=== PATIENT | male | born 1955 | race Caucasian/White ===

== ENCOUNTER → 2024-05-14 08:01 | Outpatient (REF) | payer MEDICARE, OTHER, SELFPAY ==
[2024-05-14 10:24] LABS: ALT (SGPT) 19 U/L (0-50); AST (SGOT) 23 U/L (17-59); Albumin 4.6 g/dl (3.5-5.0); Alkaline Phosphatase 41 U/L (38-126); Blood Urea Nitrogen 18 mg/dl (9-20); Calcium 9.4 mg/dl (8.4-10.2); Carbon Dioxide 27 mmol/L (22-30); Chloride 104 mmol/L (98-107); Glucose 93 mg/dl (70-99); HDL Cholesterol 37 mg/dl; LDL Cholesterol, Calculated 48 mg/dl; Potassium 4.2 mmol/L (3.5-5.1); Sodium 140 mmol/L (135-145); Total Bilirubin 0.9 mg/dl (0.2-1.3); Total Cholesterol 111 mg/dl (50-199); Total Protein 6.9 g/dl (6.3-8.2); Triglyceride 133 mg/dl (10-149); Very Low Density Lipoprotein 26 mg/dl (0-30); eGFR > 60.00
== END ==
LOC: HWRCS 08:01
PROVIDERS: ATTENDING PHYSICIAN Internal Medicine Cardiovascular Disease; FAMILY PHYSICIAN Internal Medicine
DX: I48.0 Paroxysmal atrial fibrillation (principal); E78.2 Mixed hyperlipidemia
CPT/HCPCS: 36415; 80053; 80061; 93306

== ENCOUNTER 2024-09-26 06:01 | Day surgery (SDC) | payer MEDICARE, OTHER, SELFPAY ==
[2024-09-18 10:38] VITALS: BMI 27.5
[2024-09-26] VITALS (9 sets, daily range): BP systolic 116–152; BP diastolic 67–85; BMI 26.3
[2024-09-26 08:44] LABS: ACT-LR - POC 308 Seconds (116-155)
[2024-09-26 09:04] LABS: ACT-LR - POC 322 Seconds (116-155)
[2024-09-26 09:28] LABS: ACT-LR - POC 271 Seconds (116-155)
--- NOTE | 2024-09-26 09:52 | ITS.CL.ABL ---
[employer] - Ablation
Ablation
Procedure Report:
AFIB ablation:
Mr. Mcclain is a very pleasant 69 yr old gentleman with symptomatic paroxysmal AF presented today to the EP lab for atrial fibrillation ablation.
Date of the Procedure:
09/26/2024
Indications:
Paroxysmal atrial fibrillation
Pre-Operative Diagnosis:
Paroxysmal atrial fibrillation
Post-Operative Diagnosis:
Paroxysmal atrial fibrillation
Procedure Performed:
Atrial fibrillation ablation with Pulsed-Field approach for pulmonary vein isolation
Performing Physician:
Rashmi Diaz MD
Assistants:
EP staff
Anesthesia:
See anesthesia records
Detailed Description of the Procedure:
Written informed consent was obtained from the patient after a full explanation of the risks and benefits of the procedure including the risks of sedation and anesthesia.
The patient was brought to the electrophysiology laboratory in stable condition in fasting state. Continuous electrocardiographic and hemodynamic monitoring was initiated.
The initial rhythm was sinus rhythm.
The procedure site was meticulously prepared with surgical scrub and allowed to dry with no pooling. Sterile draping was applied to cover the procedure site. The image intensifier was draped with sterile bag and positioned over the patient. After
infusion of local anesthetic, vascular access was obtained under ultrasound guidance and sheaths were placed over guide wire as detailed below.
Sheath and Catheter Placement:
The following catheters / sheaths were placed
Sheaths:
��������� 15Fr steerable sheath (FlexCath Cross�, [employer]) in right femoral vein in right femoral vein
��������� 9Fr in right femoral vein
Catheters:
��������� RONALD HD Grid mapping catheter � at locations of RA, LA
��������� PulseSelect� PFA catheter
��������� ICE catheter -AcuNav - at locations of RA, SVC, and RV.
Intracardiac ECHO:
An 8-Dutch AcuNav intracardiac ECHO (ICE) probe was advanced through the 9-Dutch sheath in the right femoral vein into the right atrium under fluoroscopic and ICE ultrasound image guidance and a baseline ECHO study was performed. The left atrial
size was mildly dilated. There was moderate tricuspid regurgitation. The aortic valve was grossly normal. There was normal left ventricular systolic functions. There is trace pericardial effusion. All the four veins were identified and has flow
identified.
During the procedure, ICE was used for monitoring of complications, guidance of trans-septal puncture, monitor the catheter position and tracking ablation lesions. No change in the pericardial space noted throughout the procedure.
Trans-septal Puncture:
Heparin was initiated and infused to maintain appropriate ACT. A J-tipped guidewire was advanced through the 8-Dutch sheath in the right femoral vein into the superior vena cava under fluoroscopic and ICE guidance. The 8-Dutch sheath was exchanged
for a FlexCath Cross sheath which was advanced into the superior vena cava. An [employer] transseptal access system was utilized to perform the trans-septal puncture. The apparatus was withdrawn until it was in contact with the fossa ovalis. The
position was adjusted based on fluoroscopy and ultrasound images from ICE. Under fluoroscopic, hemodynamic and ICE ultrasound guidance, left atrium was cannulated by advancing the needle. Once atrial septum was cannulated, the needle was pulled back
and a guide wire was advanced through the needle into the left atrium. The guide wire was advanced into the left superior pulmonary vein. Both the sheath and the dilator was advanced into the left atrium. The dilator with the needle was withdrawn.
Blood was aspirated from the FlexCath cross sheath and arterial blood confirmed. The sheath was flushed. Saline injection noted into the left atrium on ICE. The mapping catheter was advanced in the FlexCath sheath into the left pulmonary vein. Left
atrial pressure was measured.
3D Electroanatomic Mapping:
Using the HD Grid catheter advanced through sheath into the left atrium, an electroanatomic map (EAM) of the left atrium was created using Scrip-t mapping system. The map was used for localization of catheter position and tacking of ablation
lesions. The EAM of the left atrium showed 4 pulmonary veins with two left sided and two right sided veins electrically connected to the body the LA. The EAM showed no significant scar in the left atrium.
The LA was normal in size.
Following the EAM, preparation were made for ablation.
Ablation:
Ablation # 1: Pulmonary vein Isolation:
Glycopyrrolate 0.2 mg was given prior to the placement of ablation. Using [employer]� pulsed field ablation system, pulmonary vein isolation was achieved. First the ablation catheter was placed in the LSPV and ostial ablation lesions were performed
in a counter clock loaiza approach all around the PV ostium circumferentially. Then the catheter was placed on the antral location and multiple ablation lesions were placed circumferentially on the antrum of the vein.
In the similar fashion, the LIPV were isolated.
Then the catheter was moved to right sided veins. The ostial and antral ablations were placed as noted above to the RSPV and RIPV.
Summary of ablation applied:
LSPV: 22 lesions ;�������������� RSPV: 20 lesions
LIPV: 12 lesions; �������������� RIPV: 16 lesions
Total 65 ablation lesions.
Post ablation Electroanatomic mapping:
Once the sinus rhythm achieved, the LA was mapped with HD grid in detail.
The veins were isolated and normal electrograms noted in the posterior wall. Excellent WACA ablation noted with excellent demarcation of LA myocardium and isolated antral tissue.
EPS and Confirmation of the PVI and bidirectional block:
Following achievement of entrance block at the pulmonary veins, pacing from the HD catheter in each of the four veins at 10 milliamps for 2 milliseconds showed entrance and exit block. All PVI were rechecked at the end of the case and remained
isolated with dissociated and local capture with pacing. Entrance and exit block were demonstrated in all veins.
Procedure End
ICE study was done again that showed no epicardial accumulation. No complications noted.
Following the completion of the EP study, catheters were removed. Protamine 40 mg was given at the end of the procedure and ACT was checked repeatedly. The sheaths were removed and hemostasis achieved with VASCADE and manual compression after
acceptable ACT is achieved.
Left atrial Pressure:
Mean LA pressure was 14mmHg
Mean RA pressure was 11mmHg
Fluoro Time:
3.6 min / 10.1mGy
Estimated Blood loss:
<10 cc
Specimens Removed:
None.
Implants / Devices:
None
Urine output:
None
Packs / Drains/ Tubes:
None
Instrument / Sponge Count Correct:
Yes
Complications of the Procedure:
None
Condition of Patient at Time of Transfer:
Hemodynamically stable with no neurological or vascular compromise.
Summary:
Successful atrial fibrillation ablation with Pulsed Field approach for pulmonary vein isolation
Figures from the Procedure:
Figure 1: The electroanatomic mapping (EAM) of the left atrium with bipolar voltage (purple indicates normal electrical activity with smith as no myocardial muscle electric activity indicating a line of block or scar.
[2024-09-26] MEDS: ANESTHETIC LOZENGE 1 LOZENGE PO (10:36)
--- NOTE | 2024-09-26 13:11 | W.PN.UPDATE ---
Update Note
Progress Note Update
69 yo WM s/p PVI (same day). He denies cp, sob, kanu diet, voiding, amb w/o dizziness, EKG SR with new LBBB which resolved prior to d/c home. R fem site c/d/i no HT, soft. He will resume OAC Eliquis tonight. ACtivity restirictions reviewed. He will
f/u [employer] in 2 weeks. He is for d/c home after 1230p.
== END 2024-09-26 12:30 | disposition home or self-care (01) ==
LOC: CATH 06:01
PROVIDERS: ATTENDING PHYSICIAN Internal Medicine Cardiovascular Disease; FAMILY PHYSICIAN Internal Medicine; OTHER PHYSICIAN Internal Medicine Cardiovascular Disease
DX: I48.0 Paroxysmal atrial fibrillation (principal); Z79.01 Long term (current) use of anticoagulants; Z79.899 Other long term (current) drug therapy; I44.7 Left bundle-branch block, unspecified; Z88.8 Allergy status to other drugs, medicaments and biological substances; Z98.890 Other specified postprocedural states
CPT/HCPCS: C1894; C1769; C1892; C1759; C1732; 85347; 86900; 86901; 93005; 93656; C1733; C1760; C1766

== ENCOUNTER → 2025-03-06 07:01 | Outpatient (REF) | payer MEDICARE, OTHER, SELFPAY ==
[2025-03-06 11:13] LABS: Albumin 4.8 g/dl (3.5-5.0); Blood Urea Nitrogen 21 mg/dl (9-20); Calcium 9.8 mg/dl (8.4-10.2); Carbon Dioxide 27 mmol/L (22-30); Chloride 105 mmol/L (98-107); Glucose 105 mg/dl (70-99); Phosphorus 3.9 mg/dl (2.5-4.5); Potassium 4.3 mmol/L (3.5-5.1); Sodium 144 mmol/L (135-145); eGFR > 60.00
== END ==
LOC: HWLAB 07:01
PROVIDERS: ATTENDING PHYSICIAN Internal Medicine Cardiovascular Disease; FAMILY PHYSICIAN Internal Medicine
DX: I10 Essential (primary) hypertension (principal)
CPT/HCPCS: 36415; 80069

== ENCOUNTER → 2025-03-19 07:33 | Outpatient (REF) | payer MEDICARE, OTHER, SELFPAY ==
[2025-03-19 07:59] LABS: Urine Albumin 1+ (Neg - Trace); Urine Bilirubin Negative (Negative); Urine Character Clear (Clear); Urine Color Yellow; Urine Glucose Negative (Negative); Urine Ketone Negative (Negative); Urine Leukocyte Negative (Negative); Urine Nitrite Negative (Negative); Urine Occult Blood Negative (Negative); Urine Specific Gravity 1.025 (<1.030); Urine Urobilinogen Negative (Neg - 1+)
[2025-03-19 08:00] LABS: Urine Red Blood Cell 0-2 /HPF (0-2); Urine White Cell 0-2 /HPF (0-5)
[2025-03-19 08:22] LABS: ALT (SGPT) 21 U/L (0-50); AST (SGOT) 22 U/L (17-59); Albumin 4.1 g/dl (3.5-5.0); Alkaline Phosphatase 27 U/L (38-126); Blood Urea Nitrogen 21 mg/dl (9-20); Calcium 9.5 mg/dl (8.4-10.2); Carbon Dioxide 31 mmol/L (22-30); Chloride 103 mmol/L (98-107); Glucose 98 mg/dl (70-99); Potassium 4.5 mmol/L (3.5-5.1); Sodium 143 mmol/L (135-145); Total Bilirubin 0.8 mg/dl (0.2-1.3); Total Protein 6.5 g/dl (6.3-8.2); eGFR > 60.00
[2025-03-19 08:53] LABS: Cortisol, Random 18.3 ug/dl
[2025-03-19 09:35] LABS: TSH Reflex To Free T4 2.39 uIU/ml (0.47-4.68)
== END ==
LOC: REG 07:33
PROVIDERS: ATTENDING PHYSICIAN Student in an Organized Health Care Education/Training Program; FAMILY PHYSICIAN Internal Medicine
DX: I10 Essential (primary) hypertension (principal)
CPT/HCPCS: 36415; 80053; 81003; 81015; 82088; 82533; 83835; 84244; 84443

== ENCOUNTER → 2025-04-03 06:46 | Outpatient (REF) | payer MEDICARE, OTHER, SELFPAY | LOC: RAD 06:46 | PROVIDERS: ATTENDING PHYSICIAN Student in an Organized Health Care Education/Training Program; FAMILY PHYSICIAN Internal Medicine; OTHER PHYSICIAN Specialist | DX: I1A.0 Resistant hypertension (principal) | CPT/HCPCS: 93975 ==

== ENCOUNTER → 2025-06-05 13:01 | Outpatient (REF) | payer MEDICARE, OTHER, SELFPAY | LOC: HWRCS 13:01 | PROVIDERS: ATTENDING PHYSICIAN Nurse Practitioner; FAMILY PHYSICIAN Internal Medicine | DX: I42.2 Other hypertrophic cardiomyopathy (principal) | CPT/HCPCS: 93306 ==

== ENCOUNTER → 2025-06-24 07:14 | Outpatient (REF) | payer MEDICARE, OTHER, SELFPAY ==
[2025-06-24 09:02] LABS: Hematocrit 41.6 % (39.0-52.0); Hemoglobin 14.1 g/dL (13.0-18.0); Mean Corp Hgb Conc. 33.9 g/dL (33.0-37.0); Mean Corpuscular Volume 90.0 fL (80.0-94.0); Platelet Count 268 10^3/uL (130-400); Red Cell Dist. Width 12.4 % (11.5-14.5)
[2025-06-24 09:59] LABS: ALT (SGPT) 21 U/L (0-50); AST (SGOT) 20 U/L (17-59); Albumin 4.9 g/dl (3.5-5.0); Alkaline Phosphatase 36 U/L (38-126); Blood Urea Nitrogen 21 mg/dl (9-20); Calcium 9.9 mg/dl (8.4-10.2); Carbon Dioxide 27 mmol/L (22-30); Chloride 103 mmol/L (98-107); Glucose 94 mg/dl (70-99); Magnesium 2.0 mg/dl (1.6-2.3); Potassium 4.3 mmol/L (3.5-5.1); Sodium 142 mmol/L (135-145); Total Protein 7.3 g/dl (6.3-8.2); eGFR > 60.00
== END ==
LOC: RCS 07:14
PROVIDERS: ATTENDING PHYSICIAN Nurse Practitioner; FAMILY PHYSICIAN Internal Medicine
DX: I47.29 Other ventricular tachycardia (principal); I48.0 Paroxysmal atrial fibrillation; R78.81 Bacteremia
CPT/HCPCS: 36415; 78452; 80053; 83735; 85027; 93017; A9500; J2785

== ENCOUNTER → 2025-07-07 06:04 | Day surgery (SDC) | payer MEDICARE, OTHER, SELFPAY ==
[2025-07-07] VITALS (19 sets, daily range): BP systolic 124–161; BP diastolic 72–93; BMI 26.2
--- NOTE | 2025-07-07 10:19 | ITS.EPS ---
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
EPS
Procedure Report:
Electrophysiology study:
Mr. Mcclain is a very pleasant 70 yr old gentleman with h/o syncope and was found to have slow ventricular tachycardia (VT) and high burden of PVCs on the Holter monitor with no symptoms with VT is recommended for electrophysiology (EP) study and if
clinical significant ventricular arrhythmia is inducible then possible ICD placement and if negative then ILR placement.
Date of the Procedure:
07/07/2025
Indications: Syncope and slow ventricular Tachycardia
Pre-Operative Diagnosis: Syncope and slow ventricular Tachycardia
Post-Operative Diagnosis: Slow ventricular Tachycardia
Procedure Performed: EP study
Performing physician:
Rashmi Diaz MD
Anesthesia:
See anesthesia records
Detailed Description of the Procedure:
Written informed consent was obtained from the patient after a full explanation of the risks and benefits of the procedure including the risks of sedation and anesthesia.
The patient was brought to the electrophysiology laboratory in stable condition in fasting state. Continuous electrocardiographic and hemodynamic monitoring was initiated. The initial rhythm was normal sinus.
The procedure site was meticulously prepared with surgical scrub and allowed to dry with no pooling. Sterile draping was applied to cover the procedure site. The image intensifier was draped with sterile bag and positioned over the patient.
After infusion of local anesthetic, vascular access was obtained under ultrasound guidance and sheaths were placed over guide wire as detailed below.
Sheaths:
��������� 7Fr sheath in right femoral vein
��������� 6Fr sheath in right femoral vein
Catheters:
��������� 6Fr - Juan Quad-cath at RVa
��������� Decapolar Bard catheter - at locations of RA and CS
Baseline intervals (milliseconds):
PP interval (baseline cycle length): 1082
P wave duration: 123
MA interval: 133
QRS duration:63
QT interval:404
Qtc: 388
P onset to AVJ: 40
AH interval: 62
His duration: 12
HV interval: 45
Q onset to RVa: 0
Sinus Node Function:
Burst pacing was performed from the right atrium at varying cycle lengths to measure the sinus node recovery time (SNRT) and corrected sinus node recovery time (cSNRT). The sinus node functions are within acceptable normal range.
Atrioventricular Gayla Function:
Atrial stimulation with incremental pacing intervals was performed from the high right atrium (HRA) and right ventricular apex (RVa) and antegrade and retrograde atrioventricular (AV) block cycle lengths were determined. The antegrade AV Wenckebach
was noted at 420 msec.
Programmed atrial stimulation was performed with drive train of 600 msec followed by a single atrial extra-stimulus and the AV gyala and the atrial ERPs were determined. The frequent PVCs made it difficult and pt needed to be asleep to suppress
enough PVCs for the study. The AV gayla ERP was 600/400 msec and the atrial ERP was <600/220 msec.
There was normal decremental conduction noted through the AV node. The programmed stimuli showed no evidence of dual pathways or echo beats.
Ventricular stimulation showed no retrograde conduction.
The AV gayla functions are deemed within normal range and no sign of dual pathway noted.
Ventricular Function:
Single ventricular extrastimuli were delivered following drive train of 600 msec and 400 msec the ventricular ERP was determined <210 msec. The ventricular electrical functions are within acceptable range.
Arrhythmia Induction:
Programmed stimulation including single, double and triple extrastimuli were delivered from the RVa. The burst pacing from the RVa was also attempted. The RVa was paced as per MUSTT protocol with no arrhythmia induced at drive train of 600 and then
at 400 msec with S1, S2, S3 and S4.
There was slow VT noted that was at 520- 540 msec cycle length. It was not hemodynamically significant. It was more para-systole that was noted quite frequently and was the same morphology as the PVCs likely coing from inferoseptal Pap muscle.
The catheter was moved to RVOT and the induction was again attempted with drive train of 600 msec and 400 msec with single, double and triple extrastimuli. There was no arrhythmia induced with aggressive induction maneuvers.
No sustained arrhythmia was inducible.
Drug testing:
Isuprel was started and gradually increased from 1 to 4 mcg /min with adequate tachycardia response noted.
With the 4 mcg/min Isuprel, patient developed sinus tachycardia and the arrhythmia induction was again attempted during the Isuprel and during the washout phase.
The EP study along with arrhythmia induction was repeated with programmed stimulation and the burst pacing was not able to induce any sustained arrhythmia.
The EP study during the washout phase was again attempted but no arrhythmia was noted.
Procedure End
Following the completion of the EP study, catheters were removed. The sheaths were removed and hemostasis achieved with fig of 8 suture and manual compression.
Estimated Blood loss:
<5 cc
Specimens Removed:
None.
Implants / Devices:
None
Urine output:
None
Packs / Drains/ Tubes:
None
Instrument / Sponge Count Correct:
Yes
Complications of the Procedure:
None
Condition of Patient at Time of Transfer:
Hemodynamically stable with no neurological or vascular compromise.
Summary:
Normal electrophysiology study with Isuprel with parasystolic ideoventricular rhythm noted and no significant ventricular tachycardia induced.
ILR placement is recommended for syncope.
--- NOTE | 2025-07-07 10:45 | ITS.CL.IMPLP ---
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
Implant Loop
Procedure Report:
Procedure: Insertion of Loop Recorder.�
70 years old gentleman with syncope and slow VT that cannot explain his syncope and negative exhaustive work up is recommended an ILR placement.
Date of the procedure: 07/07/25
Procedure Physician: Rashmi Diaz MD [facility]
Indication: Syncope.
Description of the procedure:
Patient was brought to the holding area after informed consent was obtained from the patient. The time out was performed immediately before the procedure.
The left parasternal chest area was prepped and draped in sterile fashion with chlorhexidine prep x 3 times. Lidocaine 1% was injected subcutaneously for local anesthesia. The loop recorder was tunneled and then injected into the subcutaneous
tissue. The tunneling tool was removed leaving the loop recorder in place. The dermis was closed with steristrips and a pressure Tegaderm dressing was placed. There were no immediate complications.
Post procedure, the device was interrogated and showed good detectable P and R waves.
There were no immediate complications.
Device:
LINQII; Model: LNQ22; Serial #:[id number]
R wave amplitude: 0.6 mV
Final Programming:
��������������� Tachycardia Detection: >130 bpm for 16 beats
��������������� Bradycardia Detection: 30 bpm for 12 beats, Asystole for 5 seconds.
��������������� Atrial fibrillation detection: On with > 10 min duration
Conclusion:
Successful insertion of loop recorder.
Recommendation:
Routine post-insert loop care.
== END | disposition home or self-care (01) ==
LOC: CATH 06:04
PROVIDERS: ATTENDING PHYSICIAN Internal Medicine Cardiovascular Disease; FAMILY PHYSICIAN Internal Medicine; OTHER PHYSICIAN Student in an Organized Health Care Education/Training Program
DX: Z09 Encounter for follow-up examination after completed treatment for conditions other than malignant neoplasm (principal); I47.29 Other ventricular tachycardia; R55 Syncope and collapse; I44.0 Atrioventricular block, first degree; I49.1 Atrial premature depolarization; I44.4 Left anterior fascicular block
CPT/HCPCS: 93620; 33285; 93005; 93621; 93623; C1730; C1764; C1894